=== PATIENT | female | born 1955 | race Two or more races ===

== ENCOUNTER → 2017-01-09 | Day surgery (SDC) | payer MEDICAID ==
[~2017-01-09] VITALS: Ht 160 cm; Wt 97.5 kg
[~2017-01-09] MED LIST: ANGIOMAX 250 MG VIAL IV ONE; FERR325T PO; HEPARIN SODIUM (PORCINE) 5000 UNITS/ML 1ML VIAL ONE; HYDR-3546 OR; HYDR200T36 PO; IODIXANOL 320MG/ML 100ML BTL IV ONE; LIDOCAINE 2%HCL (LOCAL ANESTH.) INJ 20ML MDV ONE; LISI-275 PO; METH2.5T3 PO; MIDAZOLAM HCL 1MG/1ML-2 ML VIAL ONE; OMEP20CA74 PO; SODIUM CHL 0.9% 0 ML ONE; TEMA30CA PO; TRAZ100T2 PO; VERAPAMIL 2.5MG/ML INJ 2ML VIAL IV ONE; fentaNYL CITRATE 100 MCG/2 ML VL ONE
== END | disposition home or self-care (01) ==
LOC: CATH 09:04
PROVIDERS: ATTEND Internal Medicine
DX: R94.39 Abnormal result of other cardiovascular function study (principal); I10 Essential (primary) hypertension
CPT/HCPCS: 93458; C1769; C1894; J1644; J3010; 99152; 99153; J2250; Q9967